=== PATIENT | female | born 1930 | race Caucasian/White ===

== ENCOUNTER → 2016-11-09 | Outpatient (CLI) | payer OTHER, MEDICARE | LOC: ULTRA 08:08 | DX: R94.5 Abnormal results of liver function studies (principal); R10.9 Unspecified abdominal pain ==

== ENCOUNTER → 2016-11-11 | Outpatient (CLI) | payer OTHER, MEDICARE ==
[~2016-11-11] MED LIST: HERBAL SUPPLEMENT PO
== END ==
LOC: CAT 08:38
DX: R16.0 Hepatomegaly, not elsewhere classified (principal)

== ENCOUNTER 2016-11-12 08:43 | Inpatient (IN) | payer OTHER, MEDICARE ==
[2016-11-12] VITALS (11 sets, daily range): BP systolic 119–166; BP diastolic 46–97
[~2016-11-12] VITALS: Ht 160 cm; Wt 78.5 kg
--- NOTE | ~2016-11-12 | H ---
[facility] [place] [address] HISTORY AND PHYSICAL Name: TIFFANY JARRETT Deion Room #: 423-1 ADM IN M.R.#: [id number] Admission: 11/12/16 Attend Phys: Chava Odell MD Discharge: Date of : 32 Report #: [id number] THIS REPORT FOR: //name// CC: Chava Odell DATE OF SERVICE: 11/12/2016 CHIEF COMPLAINT: Jaundice and liver mass. HISTORY OF PRESENT ILLNESS: The patient is an 86-year-old female who had seen my nurse practitioner in the clinic recently, had an ultrasound which showed a liver mass and had a CT scan on 11/11/2016 which showed a 9 cm liver mass with some biliary ductal dilatation. The patient had also been having elevation of her total bilirubin from 4.4 to 18 in the last 2 weeks. She denies any pain, states she feels fine, feels like her urine color was actually less dark. She did have some initial heartburn which has resolved. PAST MEDICAL HISTORY: Significant for arthritis, prior hysterectomy, prior cholecystectomy. MEDICATIONS: She takes no chronic meds. REVIEW OF SYSTEMS: CONSTITUTIONAL: No fevers or chills. HEENT: No headaches or visual changes. CHEST: No chest pains, tightness in the chest, shortness of breath, cough or sputum production. GASTROINTESTINAL: She had some initial reflux, but none for several weeks, no vomiting or diarrhea. GENITOURINARY: She does have the dark urine. No burning or frequency. EXTREMITIES: She has chronic joint pains but no acute pains, no swelling. SKIN: No rashes but she is jaundiced. PHYSICAL EXAMINATION: GENERAL: She is a pleasant 86-year-old female who is jaundiced but in no acute distress. HEENT: Her mucous membranes are moist. NECK: Supple, without adenopathy, thyromegaly or bruits. CHEST: Clear to auscultation. CARDIOVASCULAR: Regular, without murmur. ABDOMEN: Soft, no masses, not tender. The liver edges at the right costal margin, no splenomegaly, no abdominal masses. EXTREMITIES: Show no edema. Pulses are intact. VITAL SIGNS: Blood pressure is 137/94, pulse is 100, respiratory rate is 20. She is afebrile. [address] [address] HISTORY AND PHYSICAL Name: TIFFANY JARRETT Room #: [facility] ADM IN [facility].#: [id number] Admission: 11/12/16 Attend Phys: Chava Odell MD Discharge: Date of : 32 Report #: [id number] LABORATORY DATA: Did an INR, was 1.2. WBCs are 7.4, hemoglobin 12.9, hematocrit 37.6, platelet count 175. ASSESSMENT AND PLAN: 1. Painless jaundice with elevated total bilirubin and liver mass. Discussed with several providers including Dr. Kumar who is going to attempt an ERCP today. We will also need to have Interventional Radiology set her up for a liver mass biopsy. I gave her Zosyn on admission in light of the impending procedures. 2. Degenerative arthritis, p.r.n. treatment. I discussed with the patient and family the chance this could be a cholangiocarcinoma and we will pursue appropriate treatment evaluation once the biopsy is performed. By: 1552 1638 Chava Odell MD /nt
--- NOTE | ~2016-11-12 | S ---
[facility] [place] [address] SURGICAL PATH RPT PROCEDURE Name: AISHWARYA ROMERO Room #: 432-P ADM IN M.R.#: [id number] Admission: 11/12/16 Date of : 32 Discharge: Report #: [id number] Path Case #: [id number] PATHOLOGY REPORT COLLECTION DATE: 11/17/2016 RECEIVED DATE: 11/18/2016 SUBMITTING PHYS: Dr. Chava Odell OTHER PHYS: Dr. 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 - ABUNDANT NECROSIS AMIDST TUMOR. COMMENT: Examination shows a gland forming malignancy interspersed with large areas of coagulative necrosis. The tumor shows abundant eosinophilic cytoplasm along with duct formation. Immunohistochemical stains are performed based on the provided history as well as the morphologic appearance. (Block A1) CK7: strong membranous reactivity present CK19: strong membranous reactivity present within 80% of the tumor CK20: non-reactive CEA monoclonal: reactivity present consistent with biliary pattern Hepatocyte specific antigen: reactivity present within the 20% of the tumor cells lacking the CK19 reactivity Based on the immunohistochemical stains, as well as the morphology, the tumor appears to be a cholangiocarcinoma with focal hepatoid features (HSA reactive). Co-review: Dr. Jamar Morton The findings are discussed with Dr. Faith Mitchell at 10:00 a.m. on 11/19/16. (IUV:mgr; d/t: 11/19/16) PATHOLOGIST: Betty Hagen M.D. REPORT ELECTRONICALLY SIGNED BY: Betty Hagen M.D. DATE/TIME: 11/19/2016 14:17 * * * * * * * * * * * * GROSS PATHOLOGY: [facility] [place] [address] SURGICAL PATH RPT PROCEDURE Name: AISHWARYA ROMERO Room #: 432-P [facility] IN .R.#: [id number] Admission: 11/12/16 Date of : 32 Discharge: Report #: [id number] Path Case #: [id number] Received in formalin labeled "Aishwarya Romero, liver biopsy," are 6 distinct needle cores of brunson soft tissue ranging from 0.6 to 1.8 cm in length, which are submitted entirely in cassette A1. (KAH; 11/18/2016) CLINICAL HISTORY: Liver mass INITIAL CPT CODE(S): A; 84278, 31952, 79840, 63385, 64199, 22188 Professional services performed by [facility] at [place] [address], [place] [address] Technical services performed by [facility] at [address] [place] [address], [facility] [address], [place] [address]. [facility] [address] [address] PHONE: [phone] DIRECTOR: Chaparro W. Demetrio, M.D. * * * END OF REPORT * * *
--- NOTE | ~2016-11-12 | CNG ---
[facility] [place] [address] CYTO-NONGYN REPORT PROCEDURE Name: AISHWARYA ROMERO Room #: 432-P ADM IN M.R.#: [id number] Admission: 11/12/16 Date of : 32 Discharge: Report #: [id number] Path Case #: [id number] CYTOPATHOLOGY REPORT COLLECTION DATE: 11/17/2016 RECEIVED DATE: 11/17/2016 SUBMITTING PHYS: Dr. Chava Odell OTHER PHYS: Dr. Chava Odell CLINICAL HISTORY: Liver mass. SPECIMEN(S) RECEIVED: A.Pleural fluid * * * * * * * * * * * * FINAL DIAGNOSIS: A. Pleural fluid: - No malignant epithelial cells identified. - Reactive mesothelial cells, macrophages and inflammatory cells identified. PATHOLOGIST: Betty Hagen M.D. REPORT ELECTRONICALLY SIGNED BY: Betty Hagen M.D. DATE/TIME: 11/18/2016 14:56 * * * * * * * * * * * * GROSS PATHOLOGY: A. Pleural fluid: The specimen is submitted unfixed, labeled "Aishwarya Romero". Received by the Cytology Department is 10 mL of dark yellow fluid. One ThinPrep slide and a cell block were prepared. (clt 11.17.2016) MOVIE PROJECTIONIST(S): CHIVO Tinsley([facility]) INITIAL CPT CODE(S): A; 81745, 15187 Professional services performed by [facility] at [address] , [place] [address] Technical services performed by [facility] at [address] [place] [address]., [address], [place] [address]. [facility] [address] [place] [address], [address] [place] [address] PHONE: [phone] [facility] [address] [place] [address] CYTO-NONGYN REPORT PROCEDURE Name: AISHWARYA ROMERO Room #: 432-P ADM IN .R.#: [id number] Admission: 11/12/16 Date of : 32 Discharge: Report #: [id number] Path Case #: [id number] DIRECTOR: Chaparro Atkinson M.D. * * * END OF REPORT * * *
--- NOTE | ~2016-11-12 | S ---
[facility] [place] [address] SURGICAL PATH RPT PROCEDURE Name: TIFFANY JARRETT Room #: 432-P ADM IN M.R.#: [id number] Admission: 11/12/16 Date of : 32 Discharge: Report #: [id number] Path Case #: [id number] PATHOLOGY REPORT COLLECTION DATE: 11/12/2016 RECEIVED DATE: 11/12/2016 SUBMITTING PHYS: Dr. Silvio King OTHER PHYS: Dr. Chava Odell SPECIMEN(S) RECEIVED: A.Liver, needle biopsy * * * * * * * * * * * * FINAL DIAGNOSIS: Tissue designated as "liver mass", needle core biopsy: - MARKEDLY ATYPICAL CELLS, HIGHLY SUSPICIOUS FOR MALIGNANCY (PLEASE SEE COMMENT). - Specimen predominantly comprised of blood (99%). COMMENT: Examination shows the specimen entirely comprised of blood and a few detached markedly atypical cells with high nuclear to cytoplasmic ratio, enlarged nuclei, clumped chromatin, as well as a few nucleoli. Discrete gland formation, or sheets are not appreciated. There is no background intact tissue present for evaluation. Scant nature as well as the detached nature of these cells precludes a definitive diagnosis. Findings are highly suspicious for a partially sampled malignancy. The concurrent bile duct brushings, [id number] showed similar findings (please see separate report). Co-review: Dr. Jessica Stewart. PATHOLOGIST: Betty Hagen M.D. REPORT ELECTRONICALLY SIGNED BY: Betty Hagen M.D. DATE/TIME: 11/15/2016 17:36 * * * * * * * * * * * * GROSS PATHOLOGY: The specimen is received in formalin labeled "braden Medrano". Received are multiple segments of pale brunson soft tissue admixed with a slight amount of blood white-brunson measuring 0.5 x 0.5 x 0.1 cm in aggregate dimensions. The specimen is filtered and entirely submitted in cassette A1. (CAA; 11/14/2016) [facility] [place] [address] SURGICAL PATH RPT PROCEDURE Name: LUIZATIFFANY Deion Room #: 432-P [facility] IN ..#: [id number] Admission: 11/12/16 Date of : 32 Discharge: Report #: [id number] Path Case #: [id number] CLINICAL HISTORY: Liver mass INITIAL CPT CODE(S): A; 45898 Professional services performed by [facility] at [address] , [place] [address] Technical services performed by [facility] at [address] [place] [address], [address], [place] [address]. [facility] [place] [address] PHONE: [phone] DIRECTOR: Chaparro Atkinson M.D. * * * END OF REPORT * * *
--- NOTE | ~2016-11-12 | CNG ---
[facility] [place] [address] CYTO-NONGYN REPORT PROCEDURE Name: LUIZAAISHWARYA Room #: 432-P ADM IN M.R.#: [id number] Admission: 11/12/16 Date of : 32 Discharge: Report #: [id number] Path Case #: [id number] CYTOPATHOLOGY REPORT COLLECTION DATE: 11/12/2016 RECEIVED DATE: 11/12/2016 SUBMITTING PHYS: Dr. Silvio King OTHER PHYS: Dr. Chava Odell CLINICAL HISTORY: Liver mass. See also [id number] (see separate report for details). SPECIMEN(S) RECEIVED: A.Brushing, Bile duct * * * * * * * * * * * * FINAL DIAGNOSIS: A. Bile duct Brushing: MARKELDY ATYPICAL GLANDULAR EPITHELIAL CELLS IDENTIFIED. -Background of reactive groups of ductal epithelial cells. PATHOLOGIST: Betty Hagen M.D. REPORT ELECTRONICALLY SIGNED BY: Betty Hagen M.D. DATE/TIME: 11/15/2016 11:51 * * * * * * * * * * * * GROSS PATHOLOGY: A. Brushing, Bile duct: The specimen is labeled "Aishwarya Jarrett" and consists of two brush tips in formalin. One ThinPrep slide was prepared. (clt 11.12.2016) SOFTWARE EDUCATOR(S): CHIVO Tinsley([facility]) INITIAL CPT CODE(S): A; 21176 Professional services performed by [facility] at [facility] [address], [place] [address] Technical services performed by [facility] at [address] [place] [address], [address], [place] [address]. CC: Dr. Aayush Villasenor [facility] [address] [place] [address], [address] [place] [address] PHONE: [phone] DIRECTOR: Chaparro Atkinson M.D. [facility] [address] [place] [address] CYTO-NONGYN REPORT PROCEDURE Name: AISHWARYA JARRETT Room #: 432-P ADM IN M.R.#: [id number] Admission: 11/12/16 Date of : 32 Discharge: Report #: [id number] Path Case #: [id number] * * * END OF REPORT * * *
--- NOTE | ~2016-11-12 | H ---
[facility] [place] [address] HISTORY AND PHYSICAL Name: TIFFANY JARRETT Deion Room #: 432-P ADM IN M.R.#: [id number] Admission: 11/12/16 Attend Phys: Chava Odell MD Discharge: Date of : 32 Report #: [id number] THIS REPORT FOR: //name// CC: Chava Odell DATE OF SERVICE: 11/12/2016 HISTORY OF PRESENT ILLNESS: The patient is an 86-year-old white female who was admitted for further evaluation with a liver mass and painless jaundice. She had a marked increase in her bilirubin from a total bili of 4 to 18. ERCP showed a tight stricture due to malignancy. She ended up undergoing a biliary drain on November 17. Oncology is involved and they indicate that they will work further with the patient after her rehabilitation. She also was noted to have a right-sided pleural effusion and underwent right thoracentesis on November 17. We are seeing her in rehabilitation medicine consultation. PAST MEDICAL HISTORY: Includes arthritis, prior hysterectomy, prior cholecystectomy. PAST SURGICAL HISTORY: As noted above. MEDICATIONS: Please see the full medication listing. SOCIAL HISTORY: She lives in a house with her , 2 steps in, 12 inside. Did not utilize gait aids. There are daughters that are involved. REVIEW OF SYSTEMS: Did not offer any current complaints of chest pain, shortness of breath or current abdominal discomfort. PHYSICAL EXAMINATION: GENERAL: An 86-year-old obese white female in no obvious distress. The patient is alert, pleasant, oriented. VITAL SIGNS: Last recorded temperature 97.1, pulse 80, respirations 17, blood pressure 155/49. HEENT: Appeared to be benign. NEUROLOGIC: Cranial nerves are grossly intact. Facies are symmetric. EXTREMITIES: She has functional range of motion of both upper extremities without obvious focal weakness. DTRs are trace to 1. In her lower extremities, there is no focal calf swelling. Functional range of motion with strength grade 3+ to 4-/5. DTRs are trace to 1. ABDOMEN: She does have the biliary drain in place. Functionally, she is contact guard with sit to stand. She was able to ambulate with the front-wheeled walker, but had a significant loss of balance, needing mod assist. She also needs mod assist to try to go up and down stairs. ASSESSMENT: An 86-year-old white female with the following problem list: [address] [address] HISTORY AND PHYSICAL Name: TIFFANY JARRETT Room #: 432-P [facility] IN ..#: [id number] Admission: 11/12/16 Attend Phys: Chava Odell MD Discharge: Date of : 32 Report #: [id number] 1. Medical complexity with generalized debilitation. 2. Liver mass with biopsy report pending, is status post biliary drain. 3. Right-sided pleural effusion, status post thoracentesis. 4. Painless jaundice. 5. Exogenous obesity. 6. Degenerative arthritis. 7. Prior cholecystectomy. PLAN: From a preadmission screening perspective: 1. Prior level of function is well delineated above. 2. Expect level of improvement would be for her to become modified independent with mobility and ADLs, so she can hopefully return back to her prior living situation. 3. Goals for her to become modified independent at least at the walker level. 4. Evaluation of the patient's risk for clinical complications. She does have the above noted comorbidities. 5. Condition that cause the need for rehabilitation would be the medical complexity with generalized debilitation. 6. Treatments needed would include PT and OT hours per day each 5 days a week throughout the duration of the acute inpatient rehabilitation stay. 7. Anticipated discharge destination would be back to the home setting with her . 8. Anticipated post-discharge treatments would include home healthcare therapies when she is ready for discharge from rehab. 9. The patient meets diagnostic criteria for an acute in-hospital inpatient rehabilitation stay. She meets medical necessity criteria. She has the above noted comorbidities including the biliary drain and the recent drainage of the pleural effusion, which will need to be monitored for potential reaccumulation. She does have the tolerance for an acute inpatient rehab level and has appropriate discharge goals back to the home setting. By: 1502 1618 Marco Richardson MD /nt
--- NOTE | ~2016-11-12 | P ---
[facility] [place] [address] PROCEDURE REPORT Name: TIFFANY JARRETT Deion Room #: 432-P [facility] IN M.R.#: [id number] Admission: 11/12/16 Attend Phys: Chava Odell MD Discharge: Date of : 32 Report #: [id number] THIS REPORT FOR: //name// CC: Dr. Fernando Odell MD DATE OF SERVICE: 11/13/2016 PROCEDURE PERFORMED: ERCP. HISTORY OF PRESENT ILLNESS: The patient is an 86-year-old female with recent jaundice. She denies any abdominal pain, no nausea or vomiting. She had noticed her urine became much darker recently. Total bilirubin has jumped from 4 to 18. She therefore underwent a CT scan of the abdomen and pelvis, which showed a large intrahepatic left medial liver mass measuring approximately 9 cm in diameter. Differentials include focal nodule hyperplasia, carcinoma or cholangiocarcinoma. Metastatic disease is felt to be unlikely. The patient has no previous history of liver disease. There is moderate intrahepatic biliary ductal dilation. Her weight has been fairly stable. Plan is for ERCP. DESCRIPTION OF PROCEDURE: The risks and benefits of the procedure were explained to the patient, those risks including but not limited to bleeding, perforation, the risk of sedation as well as potential risk for post-ERCP pancreatitis. She understood these risks and gave informed consent. Sedation was given using general anesthesia. The procedure was performed in the interventional radiology suite. IV Zosyn was given prior to the procedure. Also 50 mg indomethacin suppository was given as well rectally. Next, using a standard ERCP side-viewing scope, the scope was placed in the patient's mouth and advanced under direct vision through the esophagus, stomach and into the second portion of the duodenum. The major papilla was identified which was normal in appearance. There was no evidence of bile flow. At this point, using a Nick-Cook 0.025 dome tipped sphincterotome catheter, the common bile duct was cannulated without difficulty and a cholangiogram was obtained. There was significant dilation of the distal common bile duct. As the common bile duct filled, there was an obvious very tight stricture of approximately 3 cm in length in the proximal common bile duct near the bifurcation. The intrahepatics were also significantly dilated. Because of the location of the stricture and the fact that it was extremely tight, in fact a wire would not pass through this area easily. It was felt unlikely a successful stent could be placed due to the length of the stent and how tight the stricture was; therefore, Dr. King was brought into the room. We reviewed the images together and we felt it would be best for the patient to undergo a percutaneous approach. At this point, I removed the catheter in the wire. The scope was then withdrawn and the procedure terminated. The patient tolerated the procedure well. [address] [address] PROCEDURE REPORT Name: TIFFANY JARRETT Room #: 432-P [facility] IN M.R.#: [id number] Admission: 11/12/16 Attend Phys: Chava Odell MD Discharge: Date of : 32 Report #: [id number] IMPRESSION: Very tight stricture likely due to malignancy causing an external compression of the proximal common bile duct near the bifurcation, suspect this may be a cholangiocarcinoma. Due to the distance from the ampulla and the tightness of the stricture, we felt it would be best for percutaneous approach. Thank you for allowing me to participate in her care. <ELECTRONICALLY SIGNED> By: Henrry Kumar MD 11/17/16 0816 0832 1448 Henrry Kumar MD /nt
[2016-11-12] MEDS ORDERED: HERBAL SUPPLEMENT PO (09:54)
[2016-11-12 09:55] LABS: HEMATOCRIT 37.6 % (37.0-47.0); HEMOGLOBIN 12.9 gm/dL (12.0-15.0); MCH 31.2 pg (26.0-34.0); MCHC 34.2 g/dL (28.0-37.0); MCV 91.3 fL (80.0-100.0); RBC 4.12 mil/uL (4.20-5.00); RDW 16.1 % (10.5-14.5); WBC 7.4 thou/uL (4.0-11.0)
[2016-11-12 10:09] LABS: INR 1.2; PROTIME 12.6 Seconds (9.3-11.4)
[2016-11-12 10:25] LABS: ALBUMIN 2.9 g/dL (3.4-5.0); CALCIUM 9.1 mg/dL (8.5-10.1); POTASSIUM 3.9 mmol/L (3.5-5.1); TOTAL BILIRUBIN 19.8 mg/dL (<0.1-1.0)
[2016-11-12 10:47] LABS: TOTAL PROTEIN 6.8 g/dL (6.4-8.2)
[2016-11-12 20:44] LABS: URINE BILIRUBIN 3+ (Negative); URINE BLOOD TRACE (Negative); URINE COLOR YELLOW; URINE GLUCOSE-RANDOM* NEGATIVE (Negative); URINE KETONES TRACE (Negative); URINE LEUKOCYTES-REFLEX 2+ (Negative); URINE PROTEIN (DIPSTICK) NEGATIVE (Negative); URINE UROBILINOGEN 0.2 E.U./dl (0.2-1.0)
[2016-11-12 20:48] LABS: ICTOTEST (BILI CONFIRMATORY) Positive (Negative)
[2016-11-12 20:56] LABS: SQUAMOUS 0-3 Few /LPF (0-3)
[2016-11-12 20:57] LABS: CASTS None Seen /LPF (None Seen); URINE RBC 0-2 Rare /HPF (0-2); URINE WBC-REFLEX 6-15 Few /HPF (0-5)
[2016-11-12 20:58] LABS: CRYSTALS None Seen /LPF (None Seen)
[2016-11-12 21:38] LABS: HEMATOCRIT 34.6 % (37.0-47.0); HEMOGLOBIN 11.6 gm/dL (12.0-15.0); MCH 30.8 pg (26.0-34.0); MCHC 33.6 g/dL (28.0-37.0); MCV 91.7 fL (80.0-100.0); PLATELET COUNT 155 thou/uL (150-400); RBC 3.78 mil/uL (4.20-5.00); RDW 16.4 % (10.5-14.5); WBC 11.7 thou/uL (4.0-11.0)
[2016-11-12 21:40] LABS: MANUAL DIFF YES
[2016-11-12 21:48] LABS: CALCIUM 8.1 mg/dL (8.5-10.1); POTASSIUM 3.9 mmol/L (3.5-5.1)
[2016-11-12 21:59] LABS: ABSOLUTE NEUTROPHILS 10.9 thou/uL (1.4-8.2); ANISOCYTOSIS 1+; TOTAL CELL COUNT 100
[2016-11-12 22:02] LABS: ALBUMIN 2.3 g/dL (3.4-5.0); TOTAL BILIRUBIN 17.1 mg/dL (<0.1-1.0); TOTAL PROTEIN 5.5 g/dL (6.4-8.2)
[2016-11-13] VITALS (11 sets, daily range): BP systolic 123–184; BP diastolic 44–66
[2016-11-13 05:36] LABS: CALCIUM 8.1 mg/dL (8.5-10.1); POTASSIUM 3.9 mmol/L (3.5-5.1)
[2016-11-14 04:30] VITALS: BP 153/65
[2016-11-14 06:24] LABS: HEMATOCRIT 36.9 % (37.0-47.0); HEMOGLOBIN 12.5 gm/dL (12.0-15.0); MCHC 33.9 g/dL (28.0-37.0); MCV 94.4 fL (80.0-100.0); RBC 3.91 mil/uL (4.20-5.00); RDW 16.8 % (10.5-14.5); WBC 12.3 thou/uL (4.0-11.0)
[2016-11-14 06:57] LABS: ALBUMIN 2.1 g/dL (3.4-5.0); CALCIUM 8.4 mg/dL (8.5-10.1); CREATININE 0.9 mg/dL (0.6-1.0); DIRECT BILIRUBIN 12.7 mg/dL (<0.1-0.3); POTASSIUM 4.1 mmol/L (3.5-5.1); TOTAL BILIRUBIN 15.9 mg/dL (<0.1-1.0); TOTAL PROTEIN 5.9 g/dL (6.4-8.2)
[2016-11-14 09:41] VITALS: BP 148/54
[2016-11-14 20:22] VITALS: BP 131/56
[2016-11-15 04:00] VITALS: BP 154/72
[2016-11-15 06:18] LABS: HEMATOCRIT 34.4 % (37.0-47.0); HEMOGLOBIN 11.6 gm/dL (12.0-15.0); MCH 31.1 pg (26.0-34.0); MCHC 33.9 g/dL (28.0-37.0); MCV 91.9 fL (80.0-100.0); RBC 3.75 mil/uL (4.20-5.00); RDW 17.6 % (10.5-14.5); WBC 15.4 thou/uL (4.0-11.0)
[2016-11-15 06:48] LABS: ALBUMIN 1.8 g/dL (3.4-5.0); CALCIUM 7.9 mg/dL (8.5-10.1); CREATININE 1.2 mg/dL (0.6-1.0); POTASSIUM 4.2 mmol/L (3.5-5.1); TOTAL BILIRUBIN 14.4 mg/dL (<0.1-1.0); TOTAL PROTEIN 4.9 g/dL (6.4-8.2)
[2016-11-15 07:11] VITALS: BP 142/52
[2016-11-15 15:34] VITALS: BP 166/64
[2016-11-15 20:30] VITALS: BP 141/50
[2016-11-16 05:30] VITALS: BP 138/55
[2016-11-16 06:43] LABS: HEMATOCRIT 33.6 % (37.0-47.0); HEMOGLOBIN 11.2 gm/dL (12.0-15.0); MCH 30.9 pg (26.0-34.0); MCHC 33.3 g/dL (28.0-37.0); MCV 92.8 fL (80.0-100.0); RBC 3.62 mil/uL (4.20-5.00); RDW 17.1 % (10.5-14.5); WBC 15.3 thou/uL (4.0-11.0)
[2016-11-16 06:57] LABS: ALBUMIN 1.7 g/dL (3.4-5.0); CALCIUM 8.6 mg/dL (8.5-10.1); CREATININE 1.4 mg/dL (0.6-1.0); TOTAL BILIRUBIN 13.5 mg/dL (<0.1-1.0); TOTAL PROTEIN 5.7 g/dL (6.4-8.2)
[2016-11-16 08:18] VITALS: BP 145/52
[2016-11-16 15:57] VITALS: BP 130/47
[2016-11-16 20:00] VITALS: BP 138/62
[2016-11-17] VITALS (11 sets, daily range): BP systolic 138–172; BP diastolic 53–76
[2016-11-17 06:54] LABS: HEMATOCRIT 36.3 % (37.0-47.0); HEMOGLOBIN 11.7 gm/dL (12.0-15.0); MCH 30.9 pg (26.0-34.0); MCHC 32.2 g/dL (28.0-37.0); MCV 96.1 fL (80.0-100.0); RBC 3.77 mil/uL (4.20-5.00); RDW 18.5 % (10.5-14.5); WBC 12.1 thou/uL (4.0-11.0)
[2016-11-17 14:16] LABS: BF NUCLEATED CELLS 327; BF RBC 526
[2016-11-17 14:22] LABS: CLARITY CLEAR; COLOR YELLOW; MANUAL DIFF YES; TOTAL VOLUME 55 mL
[2016-11-17 15:06] LABS: BF MACROPHAGE 5; BF NEUTROPHILS 37
[2016-11-18 02:07] LABS: BODY FLUID ALBUMIN 0.8 g/dL (()); BODY FLUID AMYLASE 50 U/L (()); BODY FLUID GLUCOSE 46 mg/dL (()); BODY FLUID LDH 109 IU/L (()); BODY FLUID PROTEIN 1.5 g/dL (())
[2016-11-18 04:00] VITALS: BP 144/54
[2016-11-18 06:25] LABS: HEMATOCRIT 33.1 % (37.0-47.0); HEMOGLOBIN 11.2 gm/dL (12.0-15.0); MCH 31.5 pg (26.0-34.0); MCHC 33.8 g/dL (28.0-37.0); MCV 93.2 fL (80.0-100.0); RBC 3.55 mil/uL (4.20-5.00); RDW 17.9 % (10.5-14.5); WBC 9.4 thou/uL (4.0-11.0)
[2016-11-18 06:48] LABS: ALBUMIN 1.6 g/dL (3.4-5.0); CALCIUM 8.4 mg/dL (8.5-10.1); CREATININE 1.4 mg/dL (0.6-1.0); POTASSIUM 3.8 mmol/L (3.5-5.1); TOTAL BILIRUBIN 11.4 mg/dL (<0.1-1.0)
[2016-11-18 07:26] VITALS: BP 147/71
[2016-11-18 07:29] LABS: TOTAL PROTEIN 5.7 g/dL (6.4-8.2)
[2016-11-18] MEDS ORDERED: HYDROCODON-ACE1 EAC7 PO (07:30)
[2016-11-18] MEDS ORDERED: NEXIUM40 MG PO (07:30)
[2016-11-18] MEDS ORDERED: AUGMENTIN 875875 MG PO (07:31)
[2016-11-18] MEDS ORDERED: ZOFRAN ODT4 MG DISSOLVE (07:33)
[2016-11-18 10:20] VITALS: BP 147/71
[2016-11-18 11:18] VITALS: BP 147/71
[2016-11-18 15:34] VITALS: BP 143/46
[2016-11-18 20:00] VITALS: BP 160/59
[2016-11-19 04:01] LABS: ALBUMIN 1.5 g/dL (3.4-5.0); DIRECT BILIRUBIN 8.6 mg/dL (<0.1-0.3); TOTAL BILIRUBIN 10.1 mg/dL (<0.1-1.0); TOTAL PROTEIN 5.1 g/dL (6.4-8.2)
[2016-11-19] MEDS ORDERED: HYDROCODON-ACE1 EAC7 PO (07:35)
[2016-11-19 07:59] VITALS: BP 155/49
[2016-11-19 15:56] VITALS: BP 176/60
[2016-11-20 04:43] VITALS: BP 166/61
[2016-11-20 08:00] VITALS: BP 198/75
[2016-11-20 09:34] VITALS: BP 147/71
== END 2016-11-20 10:55 | disposition home health service (06) | DRG 871 ==
LOC: 4E 08:43 → ICU 18:43 → 4E 11-13 07:49
PROVIDERS: Family Medicine; Internal Medicine Gastroenterology; Radiology Vascular & Interventional Radiology
PROC: 0F9930Z Drainage of Common Bile Duct with Drainage Device, Percutaneous Approach (ICD-10-PCS; principal; 2016-11-12)
PROC: 0FB93ZX Excision of Common Bile Duct, Percutaneous Approach, Diagnostic (ICD-10-PCS; principal; 2016-11-12)
PROC: 0F798ZZ Dilation of Common Bile Duct, Via Natural or Artificial Opening Endoscopic (ICD-10-PCS; 2016-11-13)
PROC: 0FB03ZX Excision of Liver, Percutaneous Approach, Diagnostic (ICD-10-PCS; 2016-11-17)
PROC: 0W993ZX Drainage of Right Pleural Cavity, Percutaneous Approach, Diagnostic (ICD-10-PCS; 2016-11-17)
PROC: BB4BZZZ Ultrasonography of Pleura (ICD-10-PCS; 2016-11-17)
PROC: 0FPBX0Z Removal of Drainage Device from Hepatobiliary Duct, External Approach (ICD-10-PCS; 2016-11-17)
PROC: 0F9930Z Drainage of Common Bile Duct with Drainage Device, Percutaneous Approach (ICD-10-PCS; 2016-11-17)
DX: A41.9 Sepsis, unspecified organism (principal); K85.90 Acute pancreatitis without necrosis or infection, unspecified; E43 Unspecified severe protein-calorie malnutrition; K83.1 Obstruction of bile duct; C22.1 Intrahepatic bile duct carcinoma; T85.590A Other mechanical complication of bile duct prosthesis, initial encounter; J90 Pleural effusion, not elsewhere classified; R17 Unspecified jaundice; J98.11 Atelectasis; M19.90 Unspecified osteoarthritis, unspecified site; E66.8 Other obesity; G89.29 Other chronic pain; Y83.8 Other surgical procedures as the cause of abnormal reaction of the patient, or of later complication, without mention of misadventure at the time of the procedure; M54.9 Dorsalgia, unspecified; Y92.230 Patient room in hospital as the place of occurrence of the external cause; R91.8 Other nonspecific abnormal finding of lung field; Z90.710 Acquired absence of both cervix and uterus; Z90.49 Acquired absence of other specified parts of digestive tract; Z68.30 Body mass index [BMI] 30.0-30.9, adult; Z88.2 Allergy status to sulfonamides; Z88.6 Allergy status to analgesic agent; Z88.8 Allergy status to other drugs, medicaments and biological substances
CPT/HCPCS: 10078; 10183; 62110; 62900; 70005

== ENCOUNTER 2016-11-21 03:16 | Inpatient (IN) | payer OTHER, MEDICARE ==
[~2016-11-21] VITALS: Ht 162.6 cm; Wt 83.6 kg
--- NOTE | ~2016-11-21 | EKG ---
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
--- NOTE | ~2016-11-21 | HC ---
[facility] [place] [address] CONSULTATION Name: TIFFANY ROMERO Room #: 236-P [facility] IN M.R.#: [id number] Admission: 11/21/16 Attend Phys: Chava Odell MD Discharge: Date of : 32 Report #: [id number] THIS REPORT FOR: //name// CC: Chava Odell REQUESTING PHYSICIAN: Chava Odell MD. HISTORY OF PRESENT ILLNESS: The patient is an 86-year-old female who was admitted on 11/21/2016 after previous discharge on 11/20/2016. The patient was found to have increased shortness of breath over the day after her discharge. She had previously been in the hospital for a liver mass with biopsy revealing cholangiocarcinoma. She was scheduled to see Oncology the day prior to admission on 11/20/2016. She had had pleural effusion, which was drained at her last admission as well. She had had an ERCP and also pancreatitis during her last admission. Currently, she has severe sepsis and is on Levophed for pressure support and gram-negative rods are in her preliminary blood culture at this time. Dr. Gardner as well as Dr. Odell have discussed with the patient, her ongoing care and family desired to have palliative care treatment. PAST MEDICAL HISTORY: Significant for cholangiocarcinoma, prior to this was healthy. MEDICATIONS AT HOME: Nexium 40 mg daily, Augmentin 875/125 p.o. b.i.d., [place] and Zofran. SOCIAL HISTORY: is [place] as well as multiple family members are present at today's interview. She was a prior smoker, is currently DNR status as changed by primary team. ALLERGIES: SULFA, CODEINE, ASPIRIN, though no morphine allergy. FAMILY HISTORY: Noncontributory. REVIEW OF SYSTEMS: Unable to obtain at this time as the patient is experiencing acute delirium. PHYSICAL EXAMINATION: VITAL SIGNS: Include pulse 77, respirations 15, blood pressure 102/56, 98% on 2 liters nasal cannula. GENERAL: The patient is awake, but not alert or responsive at this time. No acute distress or signs or symptoms of this. RESPIRATORY: Lungs are clear to auscultation. CARDIOVASCULAR: Currently in AFib, rate is well controlled. ABDOMEN: Soft, nontender, positive bowel sounds but diminished. LABORATORY DATA: These include AST 205, ALT 89, alkaline phosphatase 810. White blood cell count 18.0, hemoglobin 10.6, platelets 61. CO2 at 17 and [facility] [address] [place] [address] CONSULTATION Name: TIFFANY ROMERO Room #: 236-P [facility] IN .R.#: [id number] Admission: 11/21/16 Attend Phys: Chava Odell MD Discharge: Date of : 32 Report #: [id number] creatinine 2.2 as well as a lactic acid 9.61. ASSESSMENT AND PLAN: 1. Severe sepsis requiring pressors at this point. Discussed with family the plan would be when they felt appropriate and that family had been able to be present, we would withdraw Levophed and would provide comfort support including medications for pain in the form of morphine and morphine drip if necessary, though continuous medication as explained to family can sometimes prolong life rather than expedite . Did also explain management of anxiety with lorazepam, also can be managed with both positional changes and medication, though these are more distressing to family, explained what these were, explained the process of care and that timing may be difficult to ascertain at this time. I explained that we would remove other medications as well. The patient's family is amenable to this including and daughters and multiple other family members, which were present for this interview. I have given my contact information for direct contact as well as explained the nurse can contact me at any time. I have written orders to remove alarms and monitoring devices in order to provide a more comfortable atmosphere. We will provide consult for family. 2. Cholangiocarcinoma. At this time overall cause of condition related to this. 3. Acute kidney injury. Again, the patient is to pursue palliative care option. 4. Severe protein calorie malnutrition. Again, palliative care as above. 5. Hypoxic respiratory failure. Again, we will provide oxygen for air hunger and management of symptoms. I have explained these thoroughly today. I will continue to follow with this patient. Please contact me for any questions regarding this patient's care. <ELECTRONICALLY SIGNED> By: Refugio King DO 11/25/16 1118 [id number] 1514 Refugio King DO /nt
--- NOTE | ~2016-11-21 | H ---
[facility] [place] [address] HISTORY AND PHYSICAL Name: TIFFANY JARRETT Room #: 236-P [facility] IN M.R.#: [id number] Admission: 11/21/16 Attend Phys: Chava Odell MD Discharge: 11/25/16 Date of : 32 Report #: [id number] THIS REPORT FOR: //name// CC: Chava Odell DATE OF SERVICE: 11/21/2016 CHIEF COMPLAINT: Shortness of air. HISTORY OF PRESENT ILLNESS: The patient is an 86-year-old female who was just discharged yesterday after being in the hospital for a week with a liver mass that was biopsied and a drain was placed. She developed pancreatitis after an ERCP to ____ drain procedure in the beginning of her hospital stay; that all resolved. She did have some pleural effusion that was tapped and a CT chest which showed a mass which turned out to be more atelectasis. She was doing quite well, never had any breathing problems throughout her stay, was discharged to home with home health. States she became more short of breath gradually over the day and became more severe at the middle of night she came in. She feels tired as well. She did have her antinausea medicine and pain meds ____ bed. Her biopsy came back cholangiocarcinoma prior to her discharge. She was scheduled to meet with the oncologist to discuss options yesterday. Her meds at home have been Nexium 40 mg a day, Augmentin 875 b.i.d., Zofran p.r.n., hydrocodone p.r.n. ALLERGIES: ASPIRIN, CODEINE, SULFA. ALTHOUGH CODEINE ALLERGIES, she has tolerated hydrocodone before. SOCIAL HISTORY: Prior smoker, no alcohol, no recreational drugs. Lives independently with her . REVIEW OF SYSTEMS: CONSTITUTIONAL: No fever or chills. HEENT: No headaches or visual changes. CHEST: Shortness of air, no cough or sputum production. GASTROINTESTINAL: She has had nausea from her cancer, no vomiting or diarrhea. GENITOURINARY: No burning or frequency. EXTREMITIES: No new joint pain or swelling. SKIN: She has a rash on left arm, which is from IV infiltration, which is getting better. NEUROLOGIC: No new numbness or weakness. PHYSICAL EXAMINATION: VITAL SIGNS: Blood pressure was 196/60 on presentation, pulse was 100, respiratory rate was 27, O2 sat was ____ on 2 L. GENERAL: She appears frail and fatigued to me at the time of my evaluation. It was 6:30. Her color is jaundiced. Her mucous membranes are dry. [address] [address] HISTORY AND PHYSICAL Name: TIFFANY JARRETT [place] Room #: 236-P [facility] IN M.R.#: [id number] Admission: 11/21/16 Attend Phys: Chava Odell MD Discharge: 11/25/16 Date of : 32 Report #: [id number] NECK: Supple, without adenopathy, thyromegaly or bruits. CHEST: Clear to auscultation bilaterally. CARDIOVASCULAR: Regular, without murmur. ABDOMEN: Soft, no focal tenderness. She has the drain in place. The site is clean. Bowel sounds are present. EXTREMITIES: Left arm shows mild edema with some infiltrate residual in the left arm. It is improving. The right arm has a little bit of erythema from a blister that is minimal. There is 1+ edema in the legs. LABORATORY DATA: Her EKG shows sinus tachycardia, rate of 103, no ST segment changes. Sodium is 144, potassium is 4.1, chloride is 110, bicarbonate is 18, BUN is 21, creatinine is 1.0, glucose is 59, calcium is 8.0. Troponin is less than 0.04. BNP was 2502. WBC 6.8, hemoglobin 12.1, hematocrit 34.5, platelet count 192, 90 segs, 4 bands, 2 lymphs. Chest x-ray shows no infiltrate, chronic effusion which is not acute. CTA chest was performed in the ER as well, shows no pulmonary embolism. There is a small amount of effusion on the right, but similar to before. No significant new infiltrates. There is some scarring in the right upper lobe bilaterally, which is chronic and was on the last CT and some atelectasis in both lower lobes, right greater than left. ASSESSMENT AND PLAN: 1. Dyspnea. This may be a result of the atelectasis and/or fluid. There was an elevation of BNP, although no history of heart failure. I am going to go ahead and give her 1 dose of Lasix to see if that improves her output and breathing. This may also have been just a side defect from her hydrocodone which in the past has given her shortness of air, although she seemed to tolerate in the hospital. 2. Cholangiocarcinoma and weakness. We will do PT and OT. She may need to be transferred over to [facility] as our original goal was anyway. We will work toward that tomorrow. <ELECTRONICALLY SIGNED> By: Chava Odell MD 11/27/16 0827 [id number] Chava Odell MD /nt
--- NOTE | ~2016-11-21 | HC ---
[facility] [place] [address] CONSULTATION Name: TIFFANY JARRETT Room #: 236-P [facility] IN M.R.#: [id number] Admission: 11/21/16 Attend Phys: Chava Odell MD Discharge: Date of : 32 Report #: [id number] THIS REPORT FOR: //name// CC: Chava Odell MD REASON FOR CONSULTATION: Sepsis syndrome with acute kidney injury. HISTORY OF PRESENT ILLNESS: This 86-year-old female who was recently hospitalized at [facility] with diagnosis of obstructive jaundice. Evaluation revealed evidence of cholangiocarcinoma on biopsy of the hepatic mass. She required placement of a percutaneous biliary drain as attempts at ERCP were unsuccessful and she developed subsequent pancreatitis. The patient had been discharged home in anticipation of gaining strength and subsequent treatment for her neoplastic process. She was at home less than 24 hours when she developed hypotension, increasing confusion and was brought back to the Emergency Room with lactic acidosis and tachypnea. She was admitted to the Intensive Care Unit for further evaluation and treatment. She has received supplemental intravenous fluids and has had minimal urine output despite intravenous Lasix. She has no prior history of renal difficulties. PAST MEDICAL HISTORY: Remarkable for arthritis, prior hysterectomy and prior cholecystectomy. MEDICATIONS: She was on no chronic medications prior to her recent hospitalization. ALLERGIES: She has no known drug allergies. FAMILY HISTORY: Negative for renal disease. REVIEW OF SYSTEMS: Remarkable for lethargy, weakness. She denies shortness of breath, productive cough, hemoptysis, chest pain, palpitations, nausea or vomiting. PHYSICAL EXAMINATION: GENERAL: At this time reveals a chronically ill, jaundiced, elderly female in no acute distress. VITAL SIGNS: Blood pressure 95/50, pulse 88, respirations 18. SKIN: Warm and dry. There is 1+ edema of the lower extremities. Mucous membranes are dry. There is no JVD present. HEENT: The head is normocephalic and atraumatic. There is deep jaundice present. NECK: Supple. LUNGS: Mark are grossly clear to percussion and auscultation. CARDIOVASCULAR: Reveals a regular rate and rhythm without rub. [facility] [address] [place] [address] CONSULTATION Name: TIFFANY JARRETT Room #: 236-P [facility] IN ..#: [id number] Admission: 11/21/16 Attend Phys: Chava Odell MD Discharge: Date of : 32 Report #: [id number] ABDOMEN: Soft and nontender, without palpable mass or organomegaly. NEUROLOGIC: Reveals the patient to be withdrawn and depressed. She has a nonfocal examination. LABORATORY STUDIES: Available at the time of consultation include sodium 143, potassium 3.6, chloride 107, CO2 16, BUN 27, creatinine 2.0, glucose 114, total bilirubin 10.1, magnesium 1.6, albumin 1.5. White blood cell count 25,200, hemoglobin 10.7, hematocrit 31.6, platelet count 143,000. Arterial blood gases pH 7.41, pCO2 19, pO2 75.4, lactate 4.04. ASSESSMENT: 1. Severe sepsis syndrome with lactic acidosis. 2. Acute kidney injury with oliguria, suspected acute tubular necrosis versus hypovolemia. 3. Cholangiocarcinoma, biopsy proven. 4. Obstructive jaundice. 5. Suspected urinary versus biliary source for her ongoing sepsis. The patient is critically ill at this time and is being covered with broad spectrum antibiotics. She needs increased vigor of isotonic fluid replacement containing bicarbonate. We will follow serial laboratory studies, I and O and daily weights. Unfortunately, this elderly woman with a recent tissue diagnosis of cholangiocarcinoma has a very guarded prognosis. Family discussion regarding level of care and support with consideration of possible palliative care is warranted at this time. Please see orders. <ELECTRONICALLY SIGNED> By: Hong Gardner MD 11/23/16 0607 [id number] 1522 Hong Gardner MD /nt
--- NOTE | ~2016-11-21 | HC ---
[facility] [place] [address] CONSULTATION Name: TIFFANY JARRETT Room #: 236-P [facility] IN .R.#: [id number] Admission: 11/21/16 Attend Phys: Chava Odell MD Discharge: 11/25/16 Date of : 32 Report #: [id number] THIS REPORT FOR: //name// CC: Chava Odell DATE OF SERVICE: 11/21/2016 REASON FOR CONSULTATION: Dyspnea. IMPRESSION: 1. Dyspnea, likely related to her lactic acidosis and severe sepsis. 2. Cholangiocarcinoma with obstructive jaundice with drain. 3. Acute infection, question etiology. 4. Acute kidney injury. PLAN: Antibiotics per ID, fluids per renal, aerosol therapy, DVT and ulcer prophylaxis. Discussed with the family at bedside. HISTORY OF PRESENT ILLNESS: A very pleasant 86-year-old female admitted with obstructive jaundice, diagnosed with cholangiocarcinoma with percutaneous biliary drain and also had pancreatitis. Discharged home; however, worsening confusion, admitted to hospital and then transferred to ICU for fluid and resuscitation. PAST SURGICAL HISTORY: Include cholecystectomy and hysterectomy. ALLERGIES: No known. FAMILY HISTORY: Noncontributory. REVIEW OF SYSTEMS: Positive shortness breath. No definite chest pain, palpitations. No hemoptysis or hematemesis. The patient did feel tired this morning. Weakness. PHYSICAL EXAMINATION: VITAL SIGNS: This a.m., temperature 97.4, pulse 93, BP 106/47, respirations 18. LUNGS: Decreased bilaterally. GENERAL: Awake, alert, follows very short with answers. HEART: Regular. ABDOMEN: Bowel sounds present. EXTREMITIES: Upper extremity edema. No calf tenderness. Moves all extremities. LABORATORY DATA: MRSA negative. Chest x-ray showed atelectasis. PH 7.37, pCO2 of 26, pO2 of 100, bicarb 15, lactate 4.23. [facility] [address] [place] [address] CONSULTATION Name: TIFFANY JARRETT Room #: 236-P [facility] IN [facility]#: [id number] Admission: 11/21/16 Attend Phys: Chava Odell MD Discharge: 11/25/16 Date of : 32 Report #: [id number] We follow closely with you. <ELECTRONICALLY SIGNED> By: Phani Underwood MD 12/21/16 1502 1845 0148 Phani Underwood MD /nt
--- NOTE | ~2016-11-21 | EKG ---
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 villar : 1930 Requested By: Chava Odell Order Number: [id number] MD: Julian Stewart Measurements Intervals [place] Rate: 92 P: 32 OK: 153 QRS: 15 QRSD: 73 T: 45 QT: 380 QTc: 471 Interpretive Statements Sinus rhythm Atrial premature complexes Baseline wander in lead(s) V6 Nonspecific T wave abnormality No previous ECG available for comparison Electronically Signed On 11-22-2016 7:57:24 CDT by Julian Stewart [email or web address] <ELECTRONICALLY SIGNED> By: Julian Stewart MD, [facility] 11/22/16 0757 0001 0001 Julian Stewart MD, FAC /EPI
--- NOTE | ~2016-11-21 | EKG ---
[place] [address] [facility] [email or web address] [address] ELECTROCARDIOGRAM REPORT Name: TIFFANY JARRETT Room #: 236-P [facility] IN M.R.#: [id number] Admission: 11/21/16 Attend Phys: Chava Odell MD Discharge: Date of : 32 Report #: [id number] THIS REPORT FOR: //name// [facility] ED Test Date: 2016-11-21 Test Time: 04:03:43 Pat Name: TIFFANY JARRETT Department: Room: 236 Gender: F Recruitment Consultant: alaina : 1930 Requested By: Santhosh Figueroa Order Number: [id number] MD: Julian Stewart Measurements Intervals [place] Rate: 103 P: 74 RI: 141 QRS: 13 QRSD: 47 T: QT: 387 QTc: 507 Interpretive Statements Sinus tachycardia Low voltage, precordial leads Borderline abnrm T Prolonged QT interval Baseline wander in lead(s) V4 No previous ECG available for comparison Electronically Signed On 11-22-2016 7:53:03 CDT by Julian Stewart [email or web address] <ELECTRONICALLY SIGNED> By: Julian Stewart MD, [facility] 11/22/16 0753 0403 040 Julian Stewart MD, [facility] /EPI
[2016-11-21 03:16] VITALS: BP 196/60
[~2016-11-21 03:16] MED LIST changes: +AUGMENTIN 875875 MG PO; +HYDROCODON-ACE1 EAC7 PO; +NEXIUM40 MG PO; +ZOFRAN ODT4 MG DISSOLVE
[2016-11-21 04:00] LABS: HEMOGLOBIN 12.1 gm/dL (12.0-15.0); PLATELET COUNT 192 thou/uL (150-400); WBC 6.8 thou/uL (4.0-11.0)
[2016-11-21 04:01] LABS: HEMATOCRIT 34.5 % (37.0-47.0); MCH 31.9 pg (26.0-34.0); MCV 91.2 fL (80.0-100.0); RBC 3.78 mil/uL (4.20-5.00)
[2016-11-21 04:03] LABS: MANUAL DIFF YES
[2016-11-21 04:06] LABS: ANION GAP 16 mmol/L (7-16); BUN 21 mg/dL (7-18); CHLORIDE 110 mmol/L (98-107); CO2 18 mmol/L (21-32); GLUCOSE 59 mg/dL (74-106); POTASSIUM 4.1 mmol/L (3.5-5.1); SODIUM 144 mmol/L (136-145)
[2016-11-21 04:18] LABS: NT-PRO BRAIN NAT PEPTIDE 2502 pg/mL (<300); TROPONIN-I < 0.04 ng/mL (<0.04-0.07)
[2016-11-21 04:48] LABS: ABSOLUTE NEUTROPHILS 6.4 thou/uL (1.4-8.2); ANISOCYTOSIS 1+; MACROCYTES 1+; METAMYELOCYTES 3 %; NUCLEATED RBCS 1 /100WBC; TOTAL CELL COUNT 100
[2016-11-21 07:56] VITALS: BP 129/43
[2016-11-21 08:20] VITALS: BP 114/51
[2016-11-21 16:06] VITALS: BP 124/41
[2016-11-21 18:39] LABS: URINE BILIRUBIN 2+ (Negative); URINE BLOOD TRACE (Negative); URINE GLUCOSE-RANDOM* NEGATIVE (Negative); URINE KETONES NEGATIVE (Negative); URINE LEUKOCYTES-REFLEX NEGATIVE (Negative); URINE PROTEIN (DIPSTICK) NEGATIVE (Negative); URINE UROBILINOGEN 0.2 E.U./dl (0.2-1.0)
[2016-11-21 18:40] LABS: ICTOTEST (BILI CONFIRMATORY) Positive (Negative); URINE COLOR AMBER
[2016-11-21 19:39] VITALS: BP 105/63
[2016-11-21 23:03] VITALS: BP 132/49
[2016-11-21 23:28] LABS: ABG SAMPLE TYPE ARTERIAL; BE(vivo) -10.2 mmol/L (-2 to +3); HCO3 12.3 mmol/L (22.0-26.0); LACTATE 4.04 mmol/L (0.5-2.0); O2(CT) 14.6 mL/dL (15.0-23.0); O2Hb 93.9 % (92.0-98.0); PCO2 19.6 mmHg (35.0-45.0); PO2 75.4 mmHg (80.0-100.0); STICK SITE R.BRACHIAL; pH 7.417 (7.360-7.450); sO2 95.7 % (92.0-98.0); tCO2 12.9 mmol/L (24.0-30.0)
[2016-11-21 23:49] LABS: HEMATOCRIT 31.6 % (37.0-47.0); HEMOGLOBIN 10.7 gm/dL (12.0-15.0); MCH 31.4 pg (26.0-34.0); MCHC 33.7 g/dL (28.0-37.0); PLATELET COUNT 143 thou/uL (150-400)
[2016-11-21 23:51] LABS: MANUAL DIFF YES
[2016-11-21 23:52] LABS: WBC 25.2 thou/uL (4.0-11.0)
[2016-11-21 23:56] LABS: CALCIUM 7.4 mg/dL (8.5-10.1); POTASSIUM 3.6 mmol/L (3.5-5.1)
[2016-11-22] VITALS (61 sets, daily range): BP systolic 81–135; BP diastolic 37–82
[2016-11-22 00:05] LABS: MAGNESIUM 1.6 mg/dL (1.8-2.4)
[2016-11-22 00:06] LABS: TROPONIN-I 0.06 ng/mL (<0.04-0.07)
[2016-11-22 00:26] LABS: ABSOLUTE NEUTROPHILS 24.9 thou/uL (1.4-8.2); ANISOCYTOSIS 1+; TOTAL CELL COUNT 100
[2016-11-22 00:27] LABS: LARGE PLATELETS OCCASIONAL
[2016-11-22 00:28] LABS: TOXIC GRANULATION 1+
[2016-11-22 03:31] LABS: URINE BILIRUBIN 3+ (Negative); URINE BLOOD 1+ (Negative); URINE COLOR BROWN; URINE GLUCOSE-RANDOM* TRACE (Negative); URINE KETONES TRACE (Negative); URINE NITRITE NEGATIVE (Negative); URINE PROTEIN (DIPSTICK) 1+ (Negative); URINE UROBILINOGEN 0.2 E.U./dl (0.2-1.0)
[2016-11-22 03:35] LABS: ICTOTEST (BILI CONFIRMATORY) Positive (Negative)
[2016-11-22 03:45] LABS: BACTERIA None Seen /HPF (None Seen); CASTS None Seen /LPF (None Seen); CRYSTALS None Seen /LPF (None Seen); SQUAMOUS 0-3 Few /LPF (0-3); URINE RBC 0-2 Rare /HPF (0-2); URINE WBC None Seen /HPF (0-5)
[2016-11-22 07:26] LABS: ABG SAMPLE TYPE ARTERIAL; BE(vivo) -9.2 mmol/L (-2 to +3); HCO3 14.5 mmol/L (22.0-26.0); LACTATE 4.23 mmol/L (0.5-2.0); O2(CT) 15.4 mL/dL (15.0-23.0); PCO2 25.6 mmHg (35.0-45.0); PO2 100.1 mmHg (80.0-100.0); STICK SITE L.RADIAL; pH 7.372 (7.360-7.450); sO2 97.5 % (92.0-98.0); tCO2 15.3 mmol/L (24.0-30.0)
[2016-11-22 11:06] LABS: HEMATOCRIT 27.7 % (37.0-47.0); HEMOGLOBIN 9.5 gm/dL (12.0-15.0)
[2016-11-22 11:07] LABS: MCH 31.1 pg (26.0-34.0); MCHC 34.1 g/dL (28.0-37.0); RBC 3.05 mil/uL (4.20-5.00); RDW 18.4 % (10.5-14.5); WBC 39.9 thou/uL (4.0-11.0)
[2016-11-22 11:12] LABS: CALCIUM 7.2 mg/dL (8.5-10.1); POTASSIUM 3.4 mmol/L (3.5-5.1)
[2016-11-22 16:10] LABS: ALBUMIN 1.3 g/dL (3.4-5.0); CALCIUM 6.9 mg/dL (8.5-10.1); PHOSPHORUS 3.4 mg/dL (2.5-4.9); POTASSIUM 3.3 mmol/L (3.5-5.1)
[2016-11-23] VITALS (53 sets, daily range): BP systolic 73–141; BP diastolic 38–95
[2016-11-23 02:17] LABS: HEMATOCRIT 31.3 % (37.0-47.0); HEMOGLOBIN 10.6 gm/dL (12.0-15.0); MCH 31.2 pg (26.0-34.0); MCHC 33.9 g/dL (28.0-37.0); MCV 91.9 fL (80.0-100.0); RBC 3.41 mil/uL (4.20-5.00); RDW 18.6 % (10.5-14.5)
[2016-11-23 02:27] LABS: ALBUMIN 1.3 g/dL (3.4-5.0); CREATININE 2.2 mg/dL (0.6-1.0); MAGNESIUM 1.7 mg/dL (1.8-2.4); PHOSPHORUS 3.1 mg/dL (2.5-4.9); POTASSIUM 3.4 mmol/L (3.5-5.1); TOTAL BILIRUBIN 10.4 mg/dL (<0.1-1.0)
[2016-11-23 02:43] LABS: TOTAL PROTEIN 4.9 g/dL (6.4-8.2)
[2016-11-23 05:16] LABS: ABG SAMPLE TYPE ARTERIAL; BE(vivo) -13.4 mmol/L (-2 to +3); HCO3 9.6 mmol/L (22.0-26.0); O2(CT) 15.9 mL/dL (15.0-23.0); O2Hb 95.7 % (92.0-98.0); PO2 91.8 mmHg (80.0-100.0); pH 7.366 (7.360-7.450); tCO2 10.2 mmol/L (24.0-30.0)
[2016-11-23 05:17] LABS: LACTATE 9.61 mmol/L (0.5-2.0); PCO2 17.2 mmHg (35.0-45.0); STICK SITE L.RADIAL
[2016-11-24] VITALS (29 sets, daily range): BP systolic 84–105; BP diastolic 33–52
[2016-11-25] VITALS (27 sets, daily range): BP systolic 55–83; BP diastolic 30–55
== END 2016-11-25 23:36 | DRG 871 ==
LOC: ER 03:16 → 3N 06:48 → EROBS 06:48 → ICU 06:48 → ER 07:56 → 3N 08:33 → ICU 11-22 01:00
PROVIDERS: Emergency Medicine; Family Medicine; Internal Medicine Nephrology; Internal Medicine Pulmonary Disease
PROC: B548ZZA Ultrasonography of Superior Vena Cava, Guidance (ICD-10-PCS; principal; 2016-11-22)
PROC: 02HV33Z Insertion of Infusion Device into Superior Vena Cava, Percutaneous Approach (ICD-10-PCS; principal; 2016-11-22)
DX: A41.9 Sepsis, unspecified organism (principal); K83.1 Obstruction of bile duct; E43 Unspecified severe protein-calorie malnutrition; J96.91 Respiratory failure, unspecified with hypoxia; C22.1 Intrahepatic bile duct carcinoma; N17.9 Acute kidney failure, unspecified; E87.3 Alkalosis; R17 Unspecified jaundice; E88.09 Other disorders of plasma-protein metabolism, not elsewhere classified; Z51.5 Encounter for palliative care; R65.20 Severe sepsis without septic shock; Z90.710 Acquired absence of both cervix and uterus; Z88.6 Allergy status to analgesic agent; Z88.2 Allergy status to sulfonamides; Z87.891 Personal history of nicotine dependence; Z90.49 Acquired absence of other specified parts of digestive tract; Z68.31 Body mass index [BMI] 31.0-31.9, adult
CPT/HCPCS: 10078; 10795; 27000